=== PATIENT | male | born 1995 | race American Indian/Alaskan Native ===

== ENCOUNTER 2017-04-06 22:11 | Emergency (ER) | payer MEDICAID ==
[2017-04-06 23:02] LABS: Urine Drugs of Abuse Note Disclamer
[2017-04-06 23:13] LABS: Bilirubin,Urine NEG (Negative); Blood,Urine MOD (Negative); Ketones,Urine NEG (Negative); Leukocyte Esterase,Urine NEG (Negative); Mucus,Urine 2+ /HPF; Nitrite,Urine NEG (Negative)
[2017-04-06 23:22] LABS: Anion Gap 16 mmol/L; BUN/Creatinine Ratio 12.85; Blood Urea Nitrogen 9 mg/dL (9-20); Calcium 9.1 mg/dL (8.4-10.2); Carbon Dioxide 24 mmol/L (22-30); Chloride 103.6 mmol/L (98-107); Glucose 108 mg/dL (75-100); Potassium 3.9 mmol/L (3.6-5.0); Sodium 140 mmol/L (137-145)
[2017-04-07 00:37] LABS: Basophils % (Auto) 0.7 % (0.0-1.8); Eosinophils % (Auto) 2.5 % (0.0-4.3); Hematocrit 45.1 % (35.5-45.6); Hemoglobin 15.3 gm/dl (11.8-15.2); Mean Corpuscular HGB Conc 34 % (32-34); Mean Corpuscular Hemoglobin 32 pg (28-32); Mean Corpuscular Volume 95 fl (84-94); Platelet Count 138 K/mm3 (140-440); Red Blood Count 4.73 M/mm3 (3.65-5.03); Red Cell Distribution Width 12.8 % (13.2-15.2); White Blood Count 8.8 K/mm3 (4.5-11.0)
--- NOTE | 2017-04-07 01:22 | Emergency Department Report ---
HPI - General Chief Complaint: Psych Time Seen by Provider: 04/07/17 00:57 - HPI HPI: Room 16 The patient is a 21-year-old male presenting with a chief complaint of argument with mother. Patient has a history of bipolar disorder and schizophrenia reports he got angry and began cursing his mother today. Patient denies suicidal or homicidal ideation. Patient denies auditory hallucinations. Patient admits to visual hallucinations of seeing "black things sticking out of a window last night." The patient's mother was called (Miss Josie Hurley [phone]. (She states that the patient has been progressive all day. The patient was thyroxine neighbor scars and windows. Police were called cramping in the patient stated he would calm down. However the police left the patient' s aggressive behavior continued. The mother states the patient threatened her today stating "I'm going to kick your [behind]." The mother states the patient began kicking her door as well. ED Past Medical Hx - Past Medical History Previous Medical History?: Yes Hx Psychiatric Treatment: Yes (bipolar schizophrenia) - Surgical History Past Surgical History?: No - Family History Family history: no significant - Social History Smoking Status: Never Smoker Substance Use Type: None - Medications Home Medications: Home Medications Medication Instructions Recorded Confirmed Last Taken Type OXcarbazepine [Trileptal] 150 mg PO BID 04/06/17 04/06/17 04/06/17 History QUEtiapine [SEROquel] 100 mg PO BID 04/06/17 04/06/17 04/06/17 History ED Review of Systems ROS: Stated complaint: MENTAL HEALTH EVALUATION Other details as noted in HPI Comment: All other systems reviewed and negative Constitutional: denies: chills, fever Eyes: denies: eye pain, eye discharge, vision change ENT: denies: ear pain, throat pain Respiratory: denies: cough, shortness of breath, wheezing Cardiovascular: denies: chest pain, palpitations Endocrine: no symptoms reported Gastrointestinal: denies: abdominal pain, nausea, diarrhea Genitourinary: denies: urgency, dysuria Musculoskeletal: denies: back pain, joint swelling, arthralgia Skin: denies: rash, lesions Neurological: denies: headache, weakness, paresthesias Psychiatric: visual hallucinations. denies: auditory hallucinations, suicidal thoughts Hematological/Lymphatic: denies: easy bleeding, easy bruising Physical Exam - Physical Exam Vital Signs: Vital Signs 04/06/17 22:26 Temperature 98.6 F Pulse Rate 76 Respiratory 18 Rate Blood Pressure 124/81 [Left] O2 Sat by Pulse 97 Oximetry Physical Exam: GENERAL: The patient is well-developed well-nourished male lying on stretcher not appearing to be in acute distress. [] HEENT: Normocephalic. Atraumatic. Extraocular motions are intact. Patient has moist mucous membranes. NECK: Supple. Trachea midline CHEST/LUNGS: Clear to auscultation. There is no respiratory distress noted. HEART/CARDIOVASCULAR: Regular. There is no tachycardia. There is no gallop rub or murmur. ABDOMEN: Abdomen is soft, nontender. Patient has normal bowel sounds. There is no abdominal distention. SKIN: There is no rash. There is no edema. There is no diaphoresis. NEURO: The patient is awake, alert, and oriented. The patient is cooperative. The patient has normal speech MUSCULOSKELETAL: There is no evidence of acute injury. ED Course Vital Signs 04/06/17 22:26 Temperature 98.6 F Pulse Rate 76 Respiratory 18 Rate Blood Pressure 124/81 [Left] O2 Sat by Pulse 97 Oximetry ED Medical Decision Making - Lab Data Result diagrams: 04/06/17 22:50 04/06/17 22:50 Laboratory Tests 04/06/17 04/06/17 04/06/17 22:36 22:36 22:50 WBC RBC Hgb Hct MCV MCH MCHC RDW Plt Count Lymph % (Auto) [place] % (Auto) Eos % (Auto) Baso % (Auto) Lymph # [place] # Eos # Baso # Seg Neutrophils % Seg Neutrophils # Sodium 140 Potassium 3.9 Chloride 103.6 Carbon Dioxide 24 Anion Gap 16 BUN 9 Creatinine 0.7 L Estimated GFR > 60 BUN/Creatinine Ratio 12.85 Glucose 108 H Calcium 9.1 Urine Color Yellow Urine Turbidity Clear Urine pH 6.0 Ur Specific [place] 1.028 Urine Protein 30 mg/dl Urine Glucose (UA) Neg Urine Ketones Neg Urine Blood Mod Urine Nitrite Neg Urine Bilirubin Neg Urine Urobilinogen 2.0 Ur Leukocyte Esterase Neg Urine WBC (Auto) 1.0 Urine RBC (Auto) 3.0 Urine Mucus 2+ Urine Opiates Screen Presumptive negative Urine Methadone Screen Presumptive negative Ur Barbiturates Screen Presumptive positive Ur Phencyclidine Scrn Presumptive negative Ur Amphetamines Screen Presumptive negative U Benzodiazepines Scrn Presumptive negative Urine Cocaine Screen Presumptive negative U Marijuana (THC) Screen Presumptive negative Drugs of Abuse Note Disclamer Plasma/Serum Alcohol 04/06/17 04/06/17 22:50 22:50 WBC 8.8 RBC 4.73 Hgb 15.3 H Hct 45.1 MCV 95 H MCH 32 MCHC 34 RDW 12.8 L Plt Count 138 L Lymph % (Auto) 34.0 [place] % (Auto) 8.9 H Eos % (Auto) 2.5 Baso % (Auto) 0.7 Lymph # 3.0 [place] # 0.8 Eos # 0.2 Baso # 0.1 Seg Neutrophils % 53.9 Seg Neutrophils # 4.8 Sodium Potassium Chloride Carbon Dioxide Anion Gap BUN Creatinine Estimated GFR BUN/Creatinine Ratio Glucose Calcium Urine Color Urine Turbidity Urine pH Ur Specific [place] Urine Protein Urine Glucose (UA) Urine Ketones Urine Blood Urine Nitrite Urine Bilirubin Urine Urobilinogen Ur Leukocyte Esterase Urine WBC (Auto) Urine RBC (Auto) Urine Mucus Urine Opiates Screen Urine Methadone Screen Ur Barbiturates Screen Ur Phencyclidine Scrn Ur Amphetamines Screen U Benzodiazepines Scrn Urine Cocaine Screen U Marijuana (THC) Screen Drugs of Abuse Note Plasma/Serum Alcohol < 0.01 - Differential Diagnosis schizophrenia, bipolar disorder Critical care attestation.: If time is entered above; I have spent that time in minutes in the direct care of this critically ill patient, excluding procedure time. ED Disposition Clinical Impression: Threatening to others, Schizophrenia Disposition: DC/TX PSY HOSP/PSY UNIT Is pt being admited?: No Does the pt Need Aspirin: No Condition: Fair Referrals: PRIMARY CARE, [Primary Care Provider] - 3-5 Days Time of Disposition: 01:26 (awaiting acceptance)
[2017-04-07] MEDS ORDERED: HALDOL IM PRN (01:27)
[2017-04-07] MEDS ORDERED: ATIVAN IM PRN (01:27)
[2017-04-07] MEDS ORDERED: BENADRYL IM PRN (01:27)
[2017-04-07] MEDS: TRILEPTAL PO SCH ×2 (09:32→23:00)
--- NOTE | 2017-04-08 01:39 | Consultation ---
INITIAL PSYCHIATRIC CONSULTATION HISTORY OF PRESENT ILLNESS: The patient is a 21-year-old -[place] male who presented to the ED with complaints of argument with his mother. He has a history of bipolar disorder, schizophrenia and schizoaffective disorder. He reports getting angry and began cursing at his mom. Denied any suicidal or homicidal ideations; however, he does report a history of being a little violent at times in the hospital. He admits to having some visual hallucinations. He reported upon admission, they black things taken out of the window last night. The patient's mother, Josie Hurley who lives in [place] whose number is [phone]. They did the patient has been progressing the whole day. The patient was throwing things at the neighbor could really make out and what the report is saying. It would not really calm down, so the police was called and he became aggressive with them and he was hospitalized here at the hospital. According to the mother, the patient had been threatening her the whole day as well, stated that he was going to keep her behind according to report. The patient denied any harm to his mother or even verbalizing any harm to his mother; however, it is noted in the record that he has this issue and this is not something new. This has happened in the past. He reports being seen by Dr. Shirley, but could not really provide the name of the facility, could even elaborate on when he was last seen there. He denies any previous history of suicide attempts. He may have some MR or some autism, which appeared to be maybe possible as well. MENTAL STATUS EXAM: Includes the patient is alert and oriented to person, place and situation. Affect appears to be euthymic. Mood was pleasant; however, he was noted to be a little anxious upon examination. Eye contact was pretty good. Easily redirected. Thought process appeared to be more organized as he is less common what did not describe he was upon admission. He is not responding to any internal stimuli right now. Denies any SI, HI, auditory and visual hallucinations. Concentration appeared to be easily distracted and limited. Memory is limited as well. Insight and judgment appear to be fair. I do not think he is probably able to make some decisions regarding his care due to his mental state and at the current time. ASSESSMENT: Includes schizoaffective disorder. PLAN: Continue with the current regimen as prescribed. He is on Trileptal 150 b.i.d., Seroquel 100 b.i.d., Haldol 10 mg q. 8 p.r.n. as needed, Benadryl 50 mg q. 6 p.r.n. as needed, Ativan 2 mg q. 8 p.r.n. as needed. He does have some abnormal labs with a decreased platelet count. Creatinine level is low. UDS was negative for substance use. The plan is to continue with the probably contact his guardians. Discussed with them. Continue inpatient hospitalization, continue to pursue inpatient placement, continue with the current regimen, monitor QTC level, should be less than 500, also to provide outpatient resources upon examination and continue to follow during hospitalization. JOB# [id number] ARNULFO/SANDIE
[2017-04-08 09:17] VITALS: BP 98/59
[2017-04-08] MEDS: TRILEPTAL PO SCH (10:27)
--- NOTE | 2017-04-08 14:09 | Consultation ---
History of Present Illness - Reason for Consult Consult date: 04/08/17 Reason for consult: Mental Health Evaluation Requesting physician: BLAS SOLORIO - Chief Complaint Chief complaint: "I am ready to go home" - History of Present Psychiatric Illness The patient is a 21-year-old male presenting with a chief complaint of argument with mother. Patient has a history of bipolar disorder and schizophrenia reports he got angry and began cursing his mother today. Patient could not tell me much about the incident at home. Per his mother Josie Hurley [phone] , patient got upset because he was told to stop arguing with a child in the neighborhood. He started cursing at his mom and throwing rocks and the police/ EMS was called. She stated that patient is a "attention getter." Patient takes Depakote and Risperdal at this time and have an psychiatrist per his mother. No gestures of SI/HI's or AVH's. His mom stated that this behavior is new for him. She stated that he do not have a hx of recreational drug use or alcohol consumption (etoh). Medications and Allergies Allergies Allergy/AdvReac Type Severity Reaction Status Date / Time No Known Allergies Allergy Verified 04/06/17 22:29 Home Medications Medication Instructions Recorded Confirmed Last Taken Type OXcarbazepine [Trileptal] 150 mg PO BID 04/06/17 04/06/17 04/06/17 History QUEtiapine [SEROquel] 100 mg PO BID 04/06/17 04/06/17 04/06/17 History Active Meds: Active Medications Diphenhydramine HCl (Benadryl) 50 mg IM Q6H PRN PRN Reason: Agitation Haloperidol Lactate (Haldol) 10 mg IM Q8H PRN PRN Reason: Agitation Lorazepam (Ativan) 2 mg IM Q8H PRN PRN Reason: Agitation Oxcarbazepine (Trileptal) 150 mg PO BID [facility] Last Admin: 04/08/17 10:27 Dose: 150 mg Quetiapine Fumarate (Seroquel) 100 mg PO BID [facility] Last Admin: 04/08/17 10:27 Dose: 100 mg Past psychiatric history - Past Medical History Past Medical History: No medical history Past Surgical History: No surgical history - past Psychiatric treatment and history Psych: Bipolar, Schizophrenia - Social History Social history: lives with family (adopted at 5 years) Mental Status Exam - Vital signs Last Vital Signs Temp 97.3 F L 04/08/17 09:15 Pulse 57 L 04/08/17 09:15 Resp 16 04/08/17 09:15 BP 98/59 04/08/17 09:15 Pulse Ox 100 04/08/17 09:15 - Exam Narrative exam: ROS (-) depression, (-) psychosis MSE: Appearance: calm, cooperative Behavior: good eye contact Speech: regular rate and tone Mood: "okay" Affect: congruent to mood Thought Process: disorganized Thought Content: denies SI/HI's and AVH's Motor Activity: ambulatory Cognition: A/Ox3 Insight: limited Judgment: limited Results Result Diagrams: 04/06/17 22:50 04/06/17 22:50 All other labs normal. Assessment and Plan Assessment and plan: Impression: Unspecified Mood DO. The patient is a 21-year-old male presenting with a chief complaint of argument with mother. Patient has a history of bipolar disorder and schizophrenia reports he got angry and began cursing his mother today. Patient could not tell me much about the incident at home. Per his mother Josie Hurley [phone], patient got upset because he was told to stop arguing with a child in the neighborhood. His mother stated that patient can return home. DD: R/O Bipolar Recommendation/Plan: Rescind 1013. Patient has an appt with his psychiatrist Saturday.
--- NOTE | 2017-04-08 19:13 | Event Note ---
Date: 04/08/17 Patient has been cleared for discharge by psychiatry. They have removed the 1013. Patient has no specific complaints to me and is awake alert and denies any suicidal ideation.
== END 2017-04-08 19:26 | disposition home or self-care (01) ==
LOC: ED 22:11 → EEVIPCON 22:11 → ED 04-08 19:26
DX: F20.9 Schizophrenia, unspecified (principal); F31.9 Bipolar disorder, unspecified
CPT/HCPCS: 36415; 80048; 80307; 81001; 85025; 99285; G0480; 80320

== ENCOUNTER 2018-08-25 06:00 | Emergency (ER) | payer MEDICAID ==
[2018-08-25 06:08] VITALS: BP 121/89
--- NOTE | 2018-08-25 06:36 | Emergency Department Report ---
Abscess Boil HPI - HPI Chief Complaint: Skin/Abscess/Foreign Body Stated Complaint: INSECT BITE Time Seen by Provider: 08/25/18 06:31 Duration: 2 Days Location: Upper Extremity Severity: Mild History: Yes Pain, Yes Insect Bite, No Fever, No Purulent Drainage, No Numbness , No Foreign Body, No Previous History HPI: Patient presents for infected insect bites to bilateral hands mild erythema no erythema mild swelling no drainage patient drained with needle incision and manual expression home Home Medications: Home Medications Medication Instructions Recorded Confirmed Last Taken OXcarbazepine [Trileptal] 150 mg PO BID 04/06/17 04/06/17 04/06/17 QUEtiapine [SEROquel] 100 mg PO BID 04/06/17 04/06/17 04/06/17 Previous Rx's Medication Instructions Recorded Last Taken Type Ibuprofen 800 mg PO TID PRN #30 tablet 08/25/18 Unknown Rx Mupirocin [Bactroban 2% OINT] 1 applic TP TID #1 tube 08/25/18 Unknown Rx Sulfamethoxazole/Trimethoprim 1 each PO BID #20 tablet 08/25/18 Unknown Rx [Bactrim DS TAB] Allergies/Adverse Reactions: Allergies Allergy/AdvReac Type Severity Reaction Status Date / Time No Known Allergies Allergy Verified 04/06/17 22:29 ED Review of Systems ROS: Stated complaint: INSECT BITE Other details as noted in HPI Constitutional: denies: chills, fever Eyes: denies: eye pain, eye discharge, vision change ENT: denies: ear pain, throat pain Respiratory: denies: cough, shortness of breath, wheezing Cardiovascular: denies: chest pain, palpitations Endocrine: no symptoms reported Gastrointestinal: denies: abdominal pain, nausea, diarrhea Genitourinary: denies: urgency, dysuria Musculoskeletal: other (infected insect bites ). denies: back pain, joint swelling, arthralgia Skin: denies: rash, lesions Neurological: denies: headache, weakness, paresthesias Psychiatric: denies: anxiety, depression Hematological/Lymphatic: denies: easy bleeding, easy bruising ED Past Medical Hx - Past Medical History Previous Medical History?: No Hx Psychiatric Treatment: Yes (bipolar schizophrenia) - Surgical History Past Surgical History?: Yes Additional Surgical History: adenoids - Social History Smoking Status: Never Smoker Substance Use Type: None - Medications Home Medications: Home Medications Medication Instructions Recorded Confirmed Last Taken Type OXcarbazepine [Trileptal] 150 mg PO BID 04/06/17 04/06/17 04/06/17 History QUEtiapine [SEROquel] 100 mg PO BID 04/06/17 04/06/17 04/06/17 History Ibuprofen 800 mg PO TID PRN #30 tablet 08/25/18 Unknown Rx Mupirocin [Bactroban 2% OINT] 1 applic TP TID #1 tube 08/25/18 Unknown Rx Sulfamethoxazole/Trimethoprim 1 each PO BID #20 tablet 08/25/18 Unknown Rx [Bactrim DS TAB] ED Abscess Boil Physical Exam - Exam General: Vital signs noted. No distress. Alert and acting appropriately. Size: 1 cm Exam: Yes Tenderness (mild ), Yes Surrounding Cellulites/Erythema (mild), Yes Normal Neurologic Exam, Yes Normal Circulation, No Fluctuance, No Lymphangitis, No Crepitation, No Heart Murmur Exam: There is mild erythema pain no fever no drainage rom intact strength /5 ED Course Vital Signs 08/25/18 06:07 Temperature 97.5 F L Pulse Rate 75 Respiratory 18 Rate Blood Pressure 121/89 O2 Sat by Pulse 98 Oximetry Critical care attestation.: If time is entered above; I have spent that time in minutes in the direct care of this critically ill patient, excluding procedure time. ED Medical Decision Making - Medical Decision Making Patient manually expressed some small very small abscesses there is mild erythema plan for Bactrim and mupirocin ointment continue Benadryl ibuprofen for pain patient given wound care instructions patient and mother verbalize agreement and understanding with same patient will follow up with PCP in 2-3 days will check skin is dry and intact clean at this time. Vital signs are normal. ED Disposition Clinical Impression: Infected insect bite Qualifiers: Encounter type: initial encounter Qualified Code(s): W57.XXXA - Bitten or stung by nonvenomous insect and other nonvenomous arthropods, initial encounter Disposition: TO HOME OR SELFCARE Is pt being admited?: No Does the pt Need Aspirin: No Condition: Good Instructions: Insect Bite or Sting (ED), Cellulitis (ED) Prescriptions: Ibuprofen 800 mg PO TID PRN #30 tablet PRN Reason: pain Mupirocin [Bactroban 2% OINT] 1 applic TP TID #1 tube Sulfamethoxazole/Trimethoprim [Bactrim DS TAB] 1 each PO BID #20 tablet Referrals: PRIMARY CARE,MD [Primary Care Provider] - 3-5 Days Forms: Work/School Release Form(ED) Time of Disposition: 06:40
== END 2018-08-25 06:47 | disposition home or self-care (01) ==
LOC: ED 06:00
DX: S60.562A Insect bite (nonvenomous) of left hand, initial encounter (principal); S60.561A Insect bite (nonvenomous) of right hand, initial encounter; L03.114 Cellulitis of left upper limb; L03.113 Cellulitis of right upper limb; W57.XXXA Bitten or stung by nonvenomous insect and other nonvenomous arthropods, initial encounter; Y93.89 Activity, other specified; Y92.89 Other specified places as the place of occurrence of the external cause; Y99.8 Other external cause status
CPT/HCPCS: 99282